=== PATIENT | female | born 1940 | race African-American/Black ===

== ENCOUNTER 2023-02-08 18:02 | Emergency (ER) | payer BC ==
[~2023-02-08] VITALS: Ht 149.9 cm; Wt 74.0 kg
[2023-02-08 18:12] VITALS: BP 176/71; PULSE 55; RESP 16; TEMP 98; O2SAT 100
[2023-02-08] MEDS ORDERED: CYCLOBENZAPRINE 10MG TABLET PO ONE (19:00)
[2023-02-08] MEDS ORDERED: IBUPROFEN 600MG TABLET PO ONE (19:00)
[2023-02-08] MEDS ORDERED: CYCL5TAB MT (21:39)
[2023-02-08] MEDS ORDERED: IBUP-2029 MT (21:39)
== END 2023-02-08 22:23 | disposition home or self-care (01) ==
LOC: ER 18:02
DX: S33.5XXA Sprain of ligaments of lumbar spine, initial encounter (principal); J45.909 Unspecified asthma, uncomplicated; I10 Essential (primary) hypertension; X58.XXXA Exposure to other specified factors, initial encounter; Y93.89 Activity, other specified; Y92.89 Other specified places as the place of occurrence of the external cause; Y99.8 Other external cause status; Z90.710 Acquired absence of both cervix and uterus; Z88.5 Allergy status to narcotic agent
CPT/HCPCS: 72131; 99284